=== PATIENT | male | born 1965 | race Caucasian/White ===

== ENCOUNTER 2017-02-04 06:31 | Day surgery (SDC) | payer BC ==
[~2017-02-04] VITALS: Ht 188 cm; Wt 84.5 kg
[~2017-02-04 06:31] MED LIST: CYCL10TA45 PO; LACTATED RINGERS 1,000 ML IV SCH; OXYC1TAB87 PO; SODIUM CHLORIDE FLUSH 3 ML SYR IV PRN; no home medications
--- OUTSIDE RECORDS SUMMARY | 2017-02-04 06:36 | XMS REPORT | Continuity of Care Document ---
Author Author [facility] Organization [facility] Address Unknown Phone Unavailable Support Name Relationship Address Phone Bernardo Edward MD Caregiver [address] [place] [address] CHRISSIE PASTOR MD Caregiver [address] [place] [address] RENETTA MANNING Next Of Kin [address] [place] [address] Insurance Providers Payer Name Policy Number Subscriber Name Relationship [employer] [id number] Renetta Manning A 01 Chief Complaint and Reason for Visit Chief Complaint Pain Reason for Visit [id number] Problems Medical Problems Problem Onset Date Status Neck pain, bilateral Unknown Active Medications Medication Dose Route Sig Days/Qty Instructions Order Date Discontinued Date Status [no home medications] 01/25/15 Active Oxycodone/Acetaminophen 1 Tab ORAL EVERY 4HRS PRN PAIN 20 Qty 01/26/15 Active Cyclobenzaprine HCl 10 Mg ORAL THREE TIMES A DAY PRN PAIN 30 Qty Active Social History No social history. Hospital Discharge Instructions No hospital discharge instructions. Plan of Care Discharge Date 01/26/15 2:08am Disposition 01 HOME OR SELF-CARE Condition at Discharge Stable Prescriptions See Medications Section Additional Instructions/Education Follow up with Dr. Juares if not improved by Thursday Return if symptoms worsen Percocet 5/325 every 4 hours as needed for pain Ibuprofen 600 mg every 6 hours Flexeril 10 mg every 8 hours Heat/cold per comfort Some of your test results may not be complete prior to your leaving the Emergency Department. The Emergency Department is not authorized to give test results over the phone. Please contact the doctor's office listed in this packet of information for your final results. Follow up with your primary care physician or return to the Emergency Department for worsening or worrisome symptoms. * Emergency Department phone number: [phone], x [phone]* MEDICAL RECORD If you need copies of your X-rays, call [phone]. If you need copies of your medical record, including lab results, a signed authorization for release of records will be required. A telephone call for release of Health Information is not allowed. BILLING Billing can sometimes be confusing and frustrating. To help avoid confusion in the future, please take a moment to acquaint yourself with the billing parties for services. SERVICE BILLING DEMO[employer]AT Emergency Room Services [facility] Physician Services [facility] X-rays [facility] Patients will receive bills for services from the appropriate provider. If you have any questions about your [facility] bill, our staff will be happy to assist you. Please call [phone], and ask for the billing department. THANK YOU for choosing [facility] as your emergency care provider! Functional Status No functional status results. Allergies, Adverse Reactions, Alerts Allergen Type Severity Reaction Status Last Updated No Known Drug Allergies Active 01/25/15 Immunizations No immunization records. Vital Signs Acute Vital Signs Vital Response Date/Time Temperature (Fahrenheit) 98.2 Pulse 58 bpm Respirations 20 Height 6 ft 2 in Weight 183 lb Body Mass Index 23.0 kg/m^2 Results Test Source Date Result Interp. Ref. Range Comments C-Reactive Protein January 25, 2015 11:36pm 0.60 mg/dL N 0.0-0.9 Albumin/Globulin Ratio January 25, 2015 11:36pm 1.520 N 1.1-1.8 Albumin January 25, 2015 11:36pm 3.8 g/dL N 3.4-5.0 Total Protein January 25, 2015 11:36pm 6.3 g/dL L 6.4-8.5 Alanine Aminotransferase (ALT/SGPT) January 25, 2015 11:36pm 27 U/L L 30-65 Aspartate Amino Transf (AST/SGOT) January 25, 2015 11:36pm 20 U/L N 15-37 Alkaline Phosphatase January 25, 2015 11:36pm 84 U/L N 38-126 Total Bilirubin January 25, 2015 11:36pm 0.3 mg/dL N 0.1-1.0 Calcium/Ionized Calcium Ratio January 25, 2015 11:36pm 4.1 mg/dL N 3.8-4.6 Calcium Level January 25, 2015 11:36pm 8.8 mg/dL N 8.8-10.8 Calculated Osmolality January 25, 2015 11:36pm 271 mosm/L L 280-300 Glucose Level January 25, 2015 11:36pm 88 mg/dL N 70-110 Estimated GFR (Non- January 25, 2015 11:36pm 90.5 Estimat Glomerular Filtration Rate January 25, 2015 11:36pm 109.5 BUN/Creatinine Ratio January 25, 2015 11:36pm 17 N 10-20 Creatinine January 25, 2015 11:36pm 0.89 mg/dL N 0.8-1.5 Blood Urea Nitrogen January 25, 2015 11:36pm 15 mg/dL N 7-18 Anion Gap January 25, 2015 11:36pm 8.8 MEQ/L N 3-15 Carbon Dioxide Level January 25, 2015 11:36pm 27 mmol/L N 22-29 Chloride Level January 25, 2015 11:36pm 108 mmol/L N 98-108 Potassium Level January 25, 2015 11:36pm 4.1 mmol/L N 3.5-5.1 Sodium Level January 25, 2015 11:36pm 140 mmol/L N 135-150 Basophils # (Auto) January 25, 2015 11:36pm 0.0 10^3uL Eosinophils # (Auto) January 25, 2015 11:36pm 0.1 10^3uL Monocytes # (Auto) January 25, 2015 11:36pm 0.8 X10^3 Lymphocytes # (Auto) January 25, 2015 11:36pm 1.3 X10^3 Neutrophils # (Auto) January 25, 2015 11:36pm 5.7 X10^3 Basophils (%) (Auto) January 25, 2015 11:36pm 0 % N 0-2 Eosinophils (%) (Auto) January 25, 2015 11:36pm 1 % N 0-4 Monocytes (%) (Auto) January 25, 2015 11:36pm 10 % N 3-11 Lymphocytes (%) (Auto) January 25, 2015 11:36pm 17 % L 20-46 Neutrophils (%) (Auto) January 25, 2015 11:36pm 72 % H 51-67 Mean Platelet Volume January 25, 2015 11:36pm 10.6 FL H 6.0-9.5 Platelet Count January 25, 2015 11:36pm 183 10^3uL N 150-450 Red Cell Distribution Width January 25, 2015 11:36pm 13.1 % N 11.8-15.6 Mean Corpuscular Hemoglobin Concent January 25, 2015 11:36pm 33.4 g/dL N 31.0-37.0 Mean Corpuscular Hemoglobin January 25, 2015 11:36pm 29.7 PG N 26.0-34.0 Mean Corpuscular Volume January 25, 2015 11:36pm 89 FL N 80-100 Hematocrit January 25, 2015 11:36pm 42.20 % N 39.00-50.00 Hemoglobin January 25, 2015 11:36pm 14.1 g/dL N 13.5-17.0 Red Blood Count January 25, 2015 11:36pm 4.75 10^6uL N 4.50-5.50 White Blood Count January 25, 2015 11:36pm 7.97 10^3uL N 4.0-11.0 Procedures No known history of procedures. Encounters Encounter Location Date/Time Departed Emergency Room [facility] 01/25/15 10:21pm Recent Diagnosis
[2017-02-04 06:41] VITALS: BP 117/84
[2017-02-04] MEDS ORDERED: PITA2TAB PO (06:48)
[2017-02-04] MEDS ORDERED: MIDAZOLAM 2 MG/2 ML (VERSED) VIAL ONE (07:05)
[2017-02-04] MEDS ORDERED: PROPOFOL 20 ML IV ONE ×2 (07:05)
[2017-02-04] MEDS ORDERED: ALFENTANIL 500 MCG/ML (ALFENTA) 5 ML AMP IV ONE (07:05)
[2017-02-04 07:51] VITALS: BP 124/81
[2017-02-04 08:10] VITALS: BP 129/87
--- NOTE | 2017-02-04 12:56 | OPERATIVE REPORT ---
DATE OF OPERATION: 02/04/2017 PRE-OPERATIVE DIAGNOSIS: Screening post op colon polyp. POST-OPERATIVE DIAGNOSIS: Total colonoscopy with forceps polypectomy. SURGEON: Dedrcik Lundy MD ANESTHESIA: IV conscious sedation, Monitored Anesthesia Services POSITION: Left lateral decubitus. ESTIMATED BLOOD LOSS: Minimal FINDINGS: 1. A tiny sessile polyp in the distal transverse colon. Remainder of colon mucosa was normal. 2. Prep was excellent. OPERATIVE NOTE: Following satisfactory induction of analgesia a digital rectal exam was performed. This revealed a smooth mildly enlarged prostate. No rectal mass was palpable. Sphincter tone was normal. Next the colonoscope was introduced per rectum and advanced under CO2 insufflation and direct vision to the cecum. The cecum was identified by convergence of the tenia, ileocecal valve , and palpation of the right lower quadrant. The above findings were noted. Customer Care Consultant photographs were obtained. The polyp was removed using cold biopsy forceps and submitted to pathology. Good hemostasis was noted at the polypectomy site. The above areas again carefully inspected as the scope was slowly withdrawn. Retroflexed view of the rectum was normal. Excess insufflated CO2 was evacuated and the scope removed. The patient tolerated procedure well and transferred to recovery in stable condition. RECOMMENDATIONS: Recommendations will be pending biopsy results. If this is an adenomatous polyp patient will need to have colonoscopy again in 5 years. If it is hyperplastic or lymphoid aggregate then patient should have follow up colonoscopy in 10 years.
== END 2017-02-04 08:27 | disposition home or self-care (01) ==
LOC: ASC 06:31
PROVIDERS: ATTEND Surgery
DX: Z12.11 Encounter for screening for malignant neoplasm of colon (principal); K63.5 Polyp of colon; N40.0 Benign prostatic hyperplasia without lower urinary tract symptoms; E78.5 Hyperlipidemia, unspecified
CPT/HCPCS: 45380; J2250; J7120